=== PATIENT | male | born 1940 | race Caucasian/White ===

== ENCOUNTER 2016-11-10 21:36 | Inpatient (IN) | payer OTHER, MEDICAID ==
[~2016-11-10] VITALS: Ht 170.2 cm; Wt 97.0 kg
[~2016-11-10 21:36] MED LIST: ACT15 PO; ADV100/50 INH; ADV250/50 INH; ADVAIR DISKUS 11 DSK IH; ALPRAZOLAM0.5 MG PO; AMBIEN CR12.5 MG PO; AMIODARONE HCL200 MG PO; ASPIRIN EC81 M1; ATI0.5 PO; ATORVASTATIN CA80 M1 PO; AUG500 PO; BACO TOP; CARCD240 PO; COLACE100 MG PO; COR200 PO; DELTASONE5 MG PO; DETROL LA2 MG PO; DETROL LA4 MG PO; DIGOXIN0.125 M1 PO; DILAUDID4 MG PO; DILTIAZEM HCL240 MG PO; DOCUSATE SODIU250 MG PO; ECO81 PO; FENOFIBRATE MI134 MG PO; FENOFIBRATE134 MG PO; FLO4 PO; GABAPENTIN300 M2 PO; GOOD SENSE ASPI81 M3 PO; GRALISE600 M2; HIBICLENS118 ML TOP; IBUPROFEN400 MG PO; K-TAB8 MEQ PO; K10 PO; LAC PO; LASIX20 MG PO; LASIX40 MG PO; LEVAQUIN750 MG PO; LEVAQUIN750 MG/150 IV; LEVOTHYROXIN0.025 M2; LEVOTHYROXIN0.125 M2 PO; LEVOTHYROXINE0.1 M2 PO; LIPITOR80 MG PO; LISINOPRIL10 MG PO; LOPRESSOR50 MG; MEDDP PO; METOPROLOL SUC100 M2 PO; METOPROLOL SUCC50 M2 PO; MONTELUKAST SOD10 M1 PO; MOT600; MUCINEX1200 M1 PO; NEU300 PO; PLAVIX75 MG PO; POTASSIUM CHLOR8 MEQ PO; PROVENTIL0.09 MG/A1 INH; RANITIDINE HCL150 M1 PO; RESTORIL30 MG PO; SERTRALINE HYD100 MG PO; SINGULAIR10 MG PO; SOL40I IV; SOLU-MEDROL40 MG IV; SOMA350 MG PO; SPIRIVA18 MC1 IH; SYN1 PO; SYNTHROID0.1 MG PO; TAMSULOSIN HCL0.4 MG PO; TERBINAFINE250 MG PO; TOP50 PO; TOPROL XL50 MG PO; TRICOR145 M1 PO; VENTOLIN H0.09 MG/A1 INH; VIAGRA25 MG PO; XANAX0.5 MG PO; XARELTO10 M1 PO; XARELTO15 M1 PO; XARELTO20 M1 PO; ZANTAC 150150 MG; ZANTAC 150150 MG PO; ZANTAC150 MG PO; ZOLOFT100 MG PO; ZOLOFT25 MG
[2016-11-10 22:30] LABS: BASOPHIL % 0.4 % (0-2); PLATELET COUNT 393 x10^3mcL (130-400)
[2016-11-10 22:35] LABS: RED CELL DISTRIBUTION WIDTH 19.2 % (11.5-14.5)
[2016-11-10 22:41] LABS: CALCIUM 8.7 mg/dL (8.5-10.1); CARBON DIOXIDE 21.1 mmol/L (21-32); CHLORIDE SERUM 106 mmol/L (98-107); GLUCOSE SERUM 143 mg/dL (74-106); POTASSIUM SERUM 3.1 mmol/L (3.5-5.1); SODIUM SERUM 142 mmol/L (136-145)
[2016-11-10 22:46] LABS: ALBUMIN 3.7 g/dL (3.4-5.0); ALKALINE PHOSPHATASE 75 U/L (46-116); ALT/SGPT 19 U/L (16-63); AMYLASE 26 U/L (25-115); AST/SGOT 10 U/L (15-37); BILIRUBIN TOTAL 0.61 mg/dL (0.20-1.00); LIPASE 81 IU/L (73-393); TOTAL PROTEIN, SERUM 7.3 g/dL (6.4-8.2)
[2016-11-10 23:06] LABS: CK-MB 1.4 ng/mL (0-3.6)
[2016-11-11] VITALS (7 sets, daily range): BP systolic 116–145; BP diastolic 56–88
[2016-11-11 02:05] LABS: UA SPECIFIC GRAVITY 1.015 (1.005-1.035); microscopic required? YES; urine erythrocyte TRACE (NEGATIVE)
[2016-11-11] MEDS ORDERED: XARELTO20 M1 PO (03:21)
[2016-11-11] MEDS ORDERED: THEOPHYLLINE300 MG PO (04:15)
[2016-11-11 04:32] LABS: CHOLESTEROL/HDL RATIO 3.9; PHOSPHOROUS 2.7 mg/dL (2.5-4.9)
[2016-11-11 04:45] LABS: FREE T4 0.61 ng/dL (0.76-1.46); FREE THYROXINE INDEX 1.5 ug/dL (1.4-4.5); T4(THYROXINE) 4.5 ug/dL (4.7-13.3)
[2016-11-11 05:25] LABS: T3 TOTAL 0.85 ng/mL
[2016-11-11 12:27] LABS: CALCIUM 8.7 mg/dL (8.5-10.1); CARBON DIOXIDE 24.2 mmol/L (21-32); CHLORIDE SERUM 103 mmol/L (98-107); CREATININE SERUM 1.1 mg/dL (0.7-1.3); GLUCOSE SERUM 129 mg/dL (74-106); POTASSIUM SERUM 3.9 mmol/L (3.5-5.1); SODIUM SERUM 136 mmol/L (136-145)
[2016-11-12 06:02] VITALS: BP 113/69
[2016-11-12 09:58] VITALS: BP 148/73
[2016-11-12 14:30] VITALS: BP 106/39
[2016-11-12 17:25] VITALS: BP 118/58
[2016-11-12 21:37] VITALS: BP 123/62
[2016-11-13 05:54] VITALS: BP 115/48
[2016-11-13 06:11] LABS: BASOPHIL % 0.6 % (0-2); PLATELET COUNT 341 x10^3mcL (130-400)
[2016-11-13 06:30] LABS: CALCIUM 8.2 mg/dL (8.5-10.1); CARBON DIOXIDE 22.5 mmol/L (21-32); CHLORIDE SERUM 106 mmol/L (98-107); CREATININE SERUM 1.1 mg/dL (0.7-1.3); GLUCOSE SERUM 104 mg/dL (74-106); POTASSIUM SERUM 3.6 mmol/L (3.5-5.1); SODIUM SERUM 140 mmol/L (136-145)
[2016-11-13 06:37] LABS: RED CELL DISTRIBUTION WIDTH 19.2 % (11.5-14.5)
[2016-11-13 09:10] VITALS: BP 146/48
[2016-11-13 12:20] VITALS: BP 102/48
[2016-11-13 17:53] VITALS: BP 127/67
[2016-11-13 17:56] VITALS: BP 125/56
[2016-11-13 21:24] VITALS: BP 131/58
[2016-11-14 05:20] VITALS: BP 123/78
[2016-11-14 07:01] LABS: CALCIUM 8.2 mg/dL (8.5-10.1); CARBON DIOXIDE 23.1 mmol/L (21-32); CHLORIDE SERUM 106 mmol/L (98-107); CREATININE SERUM 1.1 mg/dL (0.7-1.3); GLUCOSE SERUM 117 mg/dL (74-106); POTASSIUM SERUM 3.5 mmol/L (3.5-5.1); SODIUM SERUM 140 mmol/L (136-145)
[2016-11-14 07:13] LABS: TOTAL IRON BINDING CAPACITY 357 ug/dL (250-450)
[2016-11-14 07:19] LABS: IRON 19 ug/dL (65-170)
[2016-11-14 07:43] LABS: PLATELET COUNT 309 x10^3mcL (130-400); RED BLOOD CELLS 3.99 M/mm3 (4.52-5.90)
[2016-11-14 07:52] LABS: rbc morphology (normal/abnorm) ABNORMAL (NORMAL)
[2016-11-14 08:00] VITALS: BP 117/53
[2016-11-14] MEDS ORDERED: AMIODARONE HCL200 MG PO (10:52)
[2016-11-14] MEDS ORDERED: FER300 PO (10:54)
[2016-11-14] MEDS ORDERED: LOP50 PO (10:56)
[2016-11-14] MEDS ORDERED: BACO TOP (10:57)
[2016-11-14] MEDS ORDERED: VITC PO (10:58)
[2016-11-14 13:09] LABS: BAND NEUTROPHIL 0 % (0-10); BASOPHIL 0 % (0-2); MONOCYTE 8 % (0-7); SEGMENTED NEUTROPHILS 75 % (37-75)
[2016-11-14 13:10] LABS: PLATELET MORPHOLOGY PLATELETS NORMAL
[2016-11-14 13:24] VITALS: BP 132/60
[2016-11-14 13:44] VITALS: BP 132/60
[2016-11-14 15:45] VITALS: Ht 170.2 cm; Wt 97.0 kg
[2016-11-14] MEDS ORDERED: XARELTO20 M1 PO (15:51)
[2016-11-15 12:39] LABS: TRANSFERRIN 296 mg/dL (200-370)
== END 2016-11-14 18:04 | disposition home or self-care (01) | DRG 391 ==
LOC: ED 21:36 → DU 11-11 02:51
PROVIDERS: Emergency Medicine; Family Medicine; ADMIT Family Medicine
DX: K52.9 Noninfective gastroenteritis and colitis, unspecified (principal); N17.0 Acute kidney failure with tubular necrosis; I47.1 Supraventricular tachycardia; E87.6 Hypokalemia; J44.9 Chronic obstructive pulmonary disease, unspecified; J30.9 Allergic rhinitis, unspecified; K21.9 Gastro-esophageal reflux disease without esophagitis; F32.9 Major depressive disorder, single episode, unspecified; D50.9 Iron deficiency anemia, unspecified; G62.9 Polyneuropathy, unspecified; G47.00 Insomnia, unspecified; I10 Essential (primary) hypertension; D72.829 Elevated white blood cell count, unspecified; I48.2 Chronic atrial fibrillation; E66.9 Obesity, unspecified; Z79.82 Long term (current) use of aspirin; Z68.33 Body mass index [BMI] 33.0-33.9, adult; Z87.891 Personal history of nicotine dependence; Z79.01 Long term (current) use of anticoagulants; Z22.322 Carrier or suspected carrier of Methicillin resistant Staphylococcus aureus
CPT/HCPCS: 82962; 83880; 84439; J2270; J2405; J3490; J7030; J7620; J7626; J8597; Q0092; Q0163; Q9966; Q9967

== ENCOUNTER 2016-11-15 12:31 | Inpatient (IN) | payer OTHER, MEDICAID ==
[~2016-11-15] VITALS: Ht 170.2 cm; Wt 110.3 kg
[~2016-11-15 12:31] MED LIST changes: +FER300 PO; +LOP50 PO; +THEOPHYLLINE300 MG PO; +VITC PO
[2016-11-15 13:29] LABS: BASOPHIL % 0.4 % (0-2); PLATELET COUNT 311 x10^3mcL (130-400)
[2016-11-15 13:37] LABS: CALCIUM 8.4 mg/dL (8.5-10.1); CARBON DIOXIDE 27.9 mmol/L (21-32); CHLORIDE SERUM 102 mmol/L (98-107); CREATININE SERUM 1.1 mg/dL (0.7-1.3); GLUCOSE SERUM 117 mg/dL (74-106); POTASSIUM SERUM 3.4 mmol/L (3.5-5.1); SODIUM SERUM 136 mmol/L (136-145)
[2016-11-15 13:41] LABS: ALBUMIN 3.4 g/dL (3.4-5.0); ALKALINE PHOSPHATASE 74 U/L (46-116); ALT/SGPT 13 U/L (16-63); AMYLASE 33 U/L (25-115); AST/SGOT 6 U/L (15-37); BILIRUBIN TOTAL 0.3 mg/dL (0.20-1.00); LIPASE 105 IU/L (73-393); TOTAL PROTEIN, SERUM 6.4 g/dL (6.4-8.2)
[2016-11-15 16:15] LABS: UA SPECIFIC GRAVITY 1.015 (1.005-1.035); microscopic required? YES; urine erythrocyte TRACE (NEGATIVE)
[2016-11-15 16:45] LABS: MAGNESIUM 2.1 mg/dL (1.8-2.4); PHOSPHOROUS 3.3 mg/dL (2.5-4.9)
[2016-11-15 16:49] LABS: CHOLESTEROL/HDL RATIO 3.4
[2016-11-15 16:54] LABS: T3 TOTAL 0.69 ng/mL
[2016-11-15 16:55] LABS: FREE T4 0.75 ng/dL (0.76-1.46); FREE THYROXINE INDEX 1.7 ug/dL (1.4-4.5); T4(THYROXINE) 4.9 ug/dL (4.7-13.3)
[2016-11-15 17:41] VITALS: BP 174/67
[2016-11-15 17:53] VITALS: BP 174/67
[2016-11-15 19:43] VITALS: BP 140/59
[2016-11-15 21:44] VITALS: BP 141/60
[2016-11-16 06:06] VITALS: BP 110/51
[2016-11-16 07:40] LABS: CALCIUM 8.3 mg/dL (8.5-10.1); CARBON DIOXIDE 25.9 mmol/L (21-32); CHLORIDE SERUM 104 mmol/L (98-107); CREATININE SERUM 1.6 mg/dL (0.7-1.3); GLUCOSE SERUM 116 mg/dL (74-106); MAGNESIUM 2.2 mg/dL (1.8-2.4); PHOSPHOROUS 4.2 mg/dL (2.5-4.9); POTASSIUM SERUM 3.9 mmol/L (3.5-5.1); SODIUM SERUM 139 mmol/L (136-145)
[2016-11-16 07:45] LABS: BASOPHIL % 0.5 % (0-2); PLATELET COUNT 286 x10^3mcL (130-400)
[2016-11-16 07:52] LABS: RED CELL DISTRIBUTION WIDTH 19.1 % (11.5-14.5)
[2016-11-16 07:53] LABS: rbc morphology (normal/abnorm) ABNORMAL (NORMAL)
[2016-11-16 09:31] VITALS: BP 99/40
[2016-11-16 13:48] VITALS: BP 117/39
[2016-11-16 17:55] VITALS: BP 118/46
[2016-11-16 21:17] VITALS: BP 123/48
[2016-11-17 05:46] VITALS: BP 123/55
[2016-11-17 06:16] LABS: BASOPHIL % 0.5 % (0-2); PLATELET COUNT 297 x10^3mcL (130-400)
[2016-11-17 06:19] LABS: CALCIUM 8.4 mg/dL (8.5-10.1); CARBON DIOXIDE 24.9 mmol/L (21-32); CHLORIDE SERUM 104 mmol/L (98-107); CREATININE SERUM 1.4 mg/dL (0.7-1.3); GLUCOSE SERUM 116 mg/dL (74-106); MAGNESIUM 2.1 mg/dL (1.8-2.4); PHOSPHOROUS 4.3 mg/dL (2.5-4.9); POTASSIUM SERUM 3.8 mmol/L (3.5-5.1); SODIUM SERUM 138 mmol/L (136-145)
[2016-11-17 07:09] LABS: RED CELL DISTRIBUTION WIDTH 19.9 % (11.5-14.5)
[2016-11-17 09:07] VITALS: BP 136/59
[2016-11-17 13:51] VITALS: BP 92/42
[2016-11-17 17:20] VITALS: BP 131/50
[2016-11-17 21:53] VITALS: BP 112/57
[2016-11-18 06:00] VITALS: BP 127/50
[2016-11-18 06:17] LABS: BASOPHIL % 0.5 % (0-2); PLATELET COUNT 290 x10^3mcL (130-400)
[2016-11-18 06:23] LABS: CALCIUM 8.6 mg/dL (8.5-10.1); CARBON DIOXIDE 29.7 mmol/L (21-32); CHLORIDE SERUM 106 mmol/L (98-107); CREATININE SERUM 1.2 mg/dL (0.7-1.3); GLUCOSE SERUM 113 mg/dL (74-106); PHOSPHOROUS 3.9 mg/dL (2.5-4.9); POTASSIUM SERUM 4.1 mmol/L (3.5-5.1); SODIUM SERUM 141 mmol/L (136-145)
[2016-11-18 07:21] LABS: RED CELL DISTRIBUTION WIDTH 19.8 % (11.5-14.5)
[2016-11-18 10:00] VITALS: BP 124/61
[2016-11-18 14:39] VITALS: BP 120/66
[2016-11-18 18:09] VITALS: BP 133/69
[2016-11-18 22:41] VITALS: BP 119/50
[2016-11-19 06:08] VITALS: BP 114/41
[2016-11-19 09:55] VITALS: BP 114/45
[2016-11-19 13:42] VITALS: BP 136/55
[2016-11-19 15:55] VITALS: BP 136/55
[2016-11-19 17:49] VITALS: BP 152/56
[2016-11-19 21:56] VITALS: BP 98/62
[2016-11-20 05:54] VITALS: BP 155/55
[2016-11-20 09:44] VITALS: BP 167/76
[2016-11-20 13:50] VITALS: BP 126/62
[2016-11-20 17:14] VITALS: BP 112/91
[2016-11-20] MEDS ORDERED: ACETAMINOPHEN-H1 TA1 PO (17:39)
[2016-11-20 17:54] VITALS: BP 112/91
== END 2016-11-20 19:46 | DRG 205 ==
LOC: ED 12:31 → DU 15:45 → MU 11-20 07:21
PROVIDERS: Emergency Medicine; ADMIT Family Medicine
DX: M94.0 Chondrocostal junction syndrome [Tietze] (principal); N17.0 Acute kidney failure with tubular necrosis; N39.0 Urinary tract infection, site not specified; F33.1 Major depressive disorder, recurrent, moderate; D68.69 Other thrombophilia; E87.6 Hypokalemia; E11.65 Type 2 diabetes mellitus with hyperglycemia; J44.9 Chronic obstructive pulmonary disease, unspecified; I48.2 Chronic atrial fibrillation; E03.9 Hypothyroidism, unspecified; K21.9 Gastro-esophageal reflux disease without esophagitis; I10 Essential (primary) hypertension; F41.8 Other specified anxiety disorders; E78.5 Hyperlipidemia, unspecified; M06.9 Rheumatoid arthritis, unspecified; Z68.38 Body mass index [BMI] 38.0-38.9, adult; Z79.01 Long term (current) use of anticoagulants
CPT/HCPCS: 83880; 84439; 94150; 97110-GP; 97116-GP; 97530-GP; G0378; G0480; J0696; J1200; J2270; J2405; J3490; J7030; J7620; J7626; Q0092

== ENCOUNTER 2016-12-07 05:12 | Observation (INO) | payer OTHER, MEDICAID ==
[~2016-12-07] VITALS: Ht 170.2 cm; Wt 98.0 kg
[~2016-12-07 05:12] MED LIST changes: +ACETAMINOPHEN-H1 TA1 PO
[2016-12-07 07:16] LABS: BASOPHIL % 0.4 % (0-2); PLATELET COUNT 299 x10^3mcL (130-400)
[2016-12-07 07:21] LABS: CALCIUM 8.9 mg/dL (8.5-10.1); CHLORIDE SERUM 105 mmol/L (98-107); CREATININE SERUM 1.4 mg/dL (0.7-1.3); GLUCOSE SERUM 116 mg/dL (74-106); POTASSIUM SERUM 4.4 mmol/L (3.5-5.1); SODIUM SERUM 142 mmol/L (136-145)
[2016-12-07 07:22] LABS: RED CELL DISTRIBUTION WIDTH 23.3 % (11.5-14.5)
[2016-12-07 07:32] LABS: ALBUMIN 3.8 g/dL (3.4-5.0); ALKALINE PHOSPHATASE 60 U/L (46-116); ALT/SGPT 11 U/L (16-63); AST/SGOT 9 U/L (15-37); BILIRUBIN TOTAL 0.4 mg/dL (0.20-1.00); C REACTIVE PROTEIN 0.2 mg/dL (<=0.9); TOTAL PROTEIN, SERUM 6.9 g/dL (6.4-8.2)
[2016-12-07 07:45] LABS: CK-MB 0.8 ng/mL (0-3.6)
[2016-12-07 08:11] LABS: FREE T4 0.95 ng/dL (0.76-1.46); FREE THYROXINE INDEX 2.1 ug/dL (1.4-4.5); T4(THYROXINE) 6.5 ug/dL (4.7-13.3)
[2016-12-07 08:37] LABS: ERYTHROCYTE SED RATE 0 mm/hr (0-20)
[2016-12-07 09:44] LABS: MAGNESIUM 2.2 mg/dL (1.8-2.4); PHOSPHOROUS 3.3 mg/dL (2.5-4.9)
[2016-12-07 11:08] VITALS: BP 179/95
[2016-12-07 13:15] LABS: T3 TOTAL 0.71 ng/mL
[2016-12-07 13:50] LABS: microscopic required? NO
[2016-12-07 14:38] LABS: urine erythrocyte NEGATIVE (NEGATIVE)
[2016-12-07 15:30] VITALS: BP 179/95
[2016-12-07 18:36] VITALS: BP 155/82
[2016-12-07 22:29] VITALS: BP 102/59
[2016-12-08 06:17] VITALS: BP 124/62
[2016-12-08 16:18] VITALS: BP 117/81
[2016-12-08 21:13] VITALS: BP 120/47
[2016-12-09 05:31] VITALS: BP 144/49
[2016-12-09 10:09] VITALS: BP 107/50
[2016-12-09 13:52] VITALS: BP 124/50
[2016-12-09 17:27] VITALS: BP 123/39
[2016-12-09 21:58] VITALS: BP 105/38
[2016-12-10 05:44] VITALS: BP 135/48
[2016-12-10 09:31] VITALS: BP 1110/45
== END 2016-12-10 10:30 | disposition home health service (06) | DRG 391 ==
LOC: ED 05:12 → MU 09:36 → DU 09:36 → MU 12-09 13:19
PROVIDERS: Specialist; ADMIT Student in an Organized Health Care Education/Training Program
DX: A08.4 Viral intestinal infection, unspecified (principal); N17.0 Acute kidney failure with tubular necrosis; I50.43 Acute on chronic combined systolic (congestive) and diastolic (congestive) heart failure; I11.0 Hypertensive heart disease with heart failure; I48.2 Chronic atrial fibrillation; F32.9 Major depressive disorder, single episode, unspecified; E78.5 Hyperlipidemia, unspecified; J44.9 Chronic obstructive pulmonary disease, unspecified; E03.9 Hypothyroidism, unspecified; E66.9 Obesity, unspecified; Z68.33 Body mass index [BMI] 33.0-33.9, adult; Z87.891 Personal history of nicotine dependence; Z79.82 Long term (current) use of aspirin; Z79.01 Long term (current) use of anticoagulants; Z79.891 Long term (current) use of opiate analgesic; Z91.14 Patient's other noncompliance with medication regimen
CPT/HCPCS: 82962; 83880; 84439; 94150; 97110-GP; 97116-GP; 97530-GP; G0378; J1885; J2270; J2405; J3010; J3490; J7030; J7620; Q0092; Q0163

== ENCOUNTER 2017-01-23 17:06 | Inpatient (IN) | payer OTHER, MEDICAID ==
[~2017-01-23] VITALS: Ht 170.2 cm; Wt 93.9 kg
--- NOTE | 2017-01-23 17:11 | NUR ---
WAS PROVIDED CONTACT FOR BROTHER "HILL" [phone]
[2017-01-23 18:13] LABS: BASOPHIL % 1.9 % (0-2); PLATELET COUNT 296 x10^3mcL (130-400)
[2017-01-23 18:29] LABS: RED CELL DISTRIBUTION WIDTH 22.2 % (11.5-14.5)
[2017-01-23 18:35] LABS: rbc morphology (normal/abnorm) ABNORMAL (NORMAL)
[2017-01-23 18:50] LABS: ALBUMIN 3.7 g/dL (3.4-5.0); ALKALINE PHOSPHATASE 50 U/L (46-116); ALT/SGPT 12 U/L (16-63); AMYLASE 46 U/L (25-115); AST/SGOT 19 U/L (15-37); BILIRUBIN TOTAL 0.52 mg/dL (0.20-1.00); CALCIUM 8.6 mg/dL (8.5-10.1); CARBON DIOXIDE 25.8 mmol/L (21-32); CHLORIDE SERUM 102 mmol/L (98-107); CREATININE SERUM 0.9 mg/dL (0.7-1.3); GLUCOSE SERUM 87 mg/dL (74-106); LIPASE 365 IU/L (73-393); SODIUM SERUM 137 mmol/L (136-145); TOTAL PROTEIN, SERUM 7.1 g/dL (6.4-8.2)
--- NOTE | 2017-01-23 18:53 | NUR ---
PT INFORMED IN [facility] BY GOYO, EMT, NEED URINE SAMPLE AT THIS TIME. ASSISTED BY GOYO.
[2017-01-23] MEDS ORDERED: ELIQUIS5 MG PO (18:54)
[2017-01-23 18:55] LABS: POTASSIUM SERUM 2.8 mmol/L (3.5-5.1)
[2017-01-23] MEDS ORDERED: FAMOTIDINE40 MG PO (18:55)
[2017-01-23] MEDS ORDERED: FOL1 PO (18:56)
[2017-01-23] MEDS ORDERED: FUROSEMIDE20 MG PO (18:57)
[2017-01-23] MEDS ORDERED: MAGNESIUM (18:58)
--- NOTE | 2017-01-23 19:45 | NUR ---
REPORT WAS GIVEN TO YOSSI. PATILIZBETHN WILL BE TRANS[PORTED TO ROOM 251B. KCL RIDER STARTED.
[2017-01-23 20:02] LABS: MAGNESIUM 1.9 mg/dL (1.8-2.4); PHOSPHOROUS 1.6 mg/dL (2.5-4.9)
--- NOTE | 2017-01-23 20:04 | NUR ---
REC'D PT FROM ER VIA [facility]. PT IS AAOX4. TELE #8 SB HR=55 WITH OCC. PVC'S. LUNG SOUNDS CLEAR. NO SOB NOTED. ABD SOFT. BS ACTIVE X4. DENIES ABD PAIN OR N/V. PT REPORTS HAVING DIARRHEA. PT C/O 01/01 PELVIC PAIN. IV NOTED TO RFA. K-RIDER INFUSING. ORIENTED PT TO CALL LIGHT. BED IN LOWEST POSITION. WILL ENDORSE TO PRIMARY RN.
[2017-01-23 20:05] LABS: CHOLESTEROL/HDL RATIO 4.7
[2017-01-23 20:11] LABS: T3 TOTAL 0.47 ng/mL
[2017-01-23 20:19] LABS: FREE T4 0.5 ng/dL (0.76-1.46)
[2017-01-23 20:23] VITALS: BP 131/70
--- NOTE | 2017-01-23 20:30 | NUR ---
RECEIVED REPORT FROM MAXWELL GARCIA. PT RESTING IN BED COMPLAING OF LOWER ABD PAIN. WILL MEDICATE PER PRN ORDERS. ALERT AND ORIENTED. NEG ON DROOP/PARALYSIS. THOUGHT PROCESS COHERENT. OBEYS COMMANDS. SPEECH CLEAR AND COHERENT. SAFETY MEASURES ENSURED. INSTRUCTED PT TO CALL FOR ANY NEEDS/ASSISTANCE, CALL LIGHT WITHIN REACH. WILL CONT TO MONITOR PT.
[2017-01-23 20:33] LABS: microscopic required? YES
[2017-01-23 20:35] LABS: UA SPECIFIC GRAVITY 1.015 (1.005-1.035)
[2017-01-23 20:36] LABS: urine erythrocyte TRACE (NEGATIVE)
[2017-01-23 20:39] LABS: FREE THYROXINE INDEX 1.1 ug/dL (1.4-4.5); T4(THYROXINE) 3.5 ug/dL (4.7-13.3)
[2017-01-23 23:10] VITALS: BP 131/70
--- NOTE | 2017-01-24 00:30 | NUR ---
PT EASILY AROUSABLE. PRESENTING WITH GEN WEAKNESS BUT NEG ON DROOP/PARALYSIS. OBEYS COMMANDS. THOUGHT PROCESS COHERENT. GRIN SYMMETRICAL. PERRLA WNL. SAFETY MEASURES ENSURED. CALL LIGHT WITHIN REACH. WILL CONT TO MONITOR PT.
--- NOTE | 2017-01-24 02:10 | NUR ---
NOTIFIED BY [employer] THAT PT'S HR WENT DOWN TO 38. ASSESSED PT, PT AWAKE AND ALERT SITTING ON CHAIR. DENIES ANY CHEST DISCOMFORT. MADE DR. STORY AWARE
--- NOTE | 2017-01-24 04:30 | NUR ---
PT SLEEPING COMFORTABLY BUT EASILY AROUSABLE. NEG ON DROOP/PARALYSIS. OBEYS COMMANDS. ABLE TO AMBULATE WITH ASSISTANCE. AAOX4. THOUGHT PROCESS COHERENT. SAFETY MEASURES ENSURED. CALL LIGHT WITHIN REACH.
--- NOTE | 2017-01-24 05:06 | NUR ---
PT SLEPT ON AND OFF DUE TO MUSCULAR PAIN. PAIN MANAGEMENT ENFORCED. KPAD APPLIED ON THE BACK. FALL RISK ENFORCED. SAFETY MEASURES ENSURED. PT REMAINED ALERT, ORIENTED AND EASILY AROUSABLE THROUGH OUT SHIFT. DENIED OF ANY CHEST DISCOMFORT. SAFETY MEASURES WERE ENSURED. CALL LIGHT WITHIN REACH.
[2017-01-24 05:31] VITALS: BP 170/71
--- NOTE | 2017-01-24 09:00 | NUR ---
PT ON BED, AWAKE, ALERT, AND ORIENTED. HAS NO COMPLAINT OF PAIN, SOB, OR DIZZINESS. RESPONDS WELL TO QUESTION AND ANSWER. CLEAR BLI LUNG FIELD, SYMMETRICAL CHEST EXPANSION AND UNLABORED. ACTIVE BOWEL SOUNDS NOTED. NON DISTENDED ABDOMEN. SKIN INTACT. AMB WITH ASSIST. SIDE RAILS UP, CALL LIGHT WTIHIN REACH, WILL CONTINUE TO MONITOR
--- NOTE | 2017-01-24 10:00 | NUR ---
PRN PAIN MED GIVEN COVERAGE
[2017-01-24 10:05] VITALS: BP 167/63
[2017-01-24 13:08] VITALS: BP 130/54
--- NOTE | 2017-01-24 14:30 | NUR ---
NEW IV SITE ESTABLISH ON THE L HAND 24G.
--- NOTE | 2017-01-24 15:53 | NUR ---
PT ON BED ASLEEP. WILL CONTINUE TO MONITOR
[2017-01-24 17:02] LABS: CALCIUM 8.2 mg/dL (8.5-10.1); CARBON DIOXIDE 22.3 mmol/L (21-32); CHLORIDE SERUM 104 mmol/L (98-107); CREATININE SERUM 0.9 mg/dL (0.7-1.3); GLUCOSE SERUM 106 mg/dL (74-106); POTASSIUM SERUM 3.8 mmol/L (3.5-5.1); SODIUM SERUM 136 mmol/L (136-145)
[2017-01-24 17:12] VITALS: Ht 170.2 cm; Wt 93.9 kg
[2017-01-24 17:16] LABS: BASOPHIL % 0.5 % (0-2); PLATELET COUNT 238 x10^3mcL (130-400)
[2017-01-24 17:19] LABS: RED CELL DISTRIBUTION WIDTH 22.2 % (11.5-14.5)
[2017-01-24 17:38] VITALS: BP 139/47
--- NOTE | 2017-01-24 19:44 | NUR ---
PT IS A/O X4, VERBAL RESPONSIVE, ABLE TO TELL WHAT HE NEEDS. LUNG SOUND CLEAR BILATEARL, NO COUGH, NO SOB, PT IS ON TELE 8, NSR, DENY ANY CHEST PAIN OR DISCOMFORT, BOWEL SOUND PRESENT ALL 4 QUADRANTS, NO DISTENTION, NO TENDER. PEDAL PULSE PRESENT BOTH FEET, TRACE EDEMA NOTED CAITLIN, IV AT LEFT HAND, NO LEAKING, NO INFILTRATION. 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
[2017-01-24 21:10] VITALS: BP 154/65
--- NOTE | 2017-01-24 21:10 | NUR ---
PT REQUEST FOR SLEEPING PILL, REPORT TO DR. PORSHA DR. MADE AWARE, WAITING FOR NEW ORDER. WILL CONTINUE TO MONITOR THE PT.
--- NOTE | 2017-01-25 05:07 | NUR ---
PT IS A/O X4, VERBAL RESPONSIVE, DENY ANY RESPIRATORY DISTRESS, C/O PAIN AT BACK, NORCO WAS GIVEN, IV AT LEFT HAND, NO LEAKING, NO INFILTRATION. ALL ADLS ASSIST, ALL NEED MET, CALL LIGHT IN REACH, WILL CONTINUE TO MONITOR.
[2017-01-25 05:38] VITALS: BP 145/48
[2017-01-25 09:34] VITALS: BP 132/47
[2017-01-25 13:45] VITALS: BP 132/39
--- NOTE | 2017-01-25 14:30 | NUR ---
PRN MEDICATION WAS GIVEN TO THE PATIENT COVERAGE. RN WAS MADE AWARE BY THE PATIENT LATER ON THAT HE SPIT OUT THE MEDICATION. RN OBSERVED A PILL ON THE FLOOR AND WASTED IT ON THE CONTAINER
--- NOTE | 2017-01-25 15:50 | NUR ---
PT'S FAMILY AT BEDSIDE. WILL CONTINUE TO MONITOR
[2017-01-25 17:10] VITALS: BP 133/56
--- NOTE | 2017-01-25 17:10 | NUR ---
PRN PAIN MED GIVEN COVERAGE. DR. MACKENZIE
--- NOTE | 2017-01-25 17:45 | NUR ---
PT ON BED, AWAKE, ALERT, AND ORIENTED. HAS NO COMPLAINT OF PAIN, SOB, OR DIZZINESS. RESPONDS WELL TO QUESTION AND ANSWER. SIDE RAILS UP, CALL LIGHT WITHIN REACH, WILL CONTINUE TO MONITOR.
--- NOTE | 2017-01-25 19:53 | NUR ---
PT IS A/O X4, VERBAL RESPONSIVE, ABLE TO TELL WHAT HE NEEDS. LUNG SOUND CLEAR BILATERAL, NO COUGH, NO SOB, PT IS ON TELE 8, SB, DENY ANY CHEST PAIN OR DISCOMFORT, BOWEL SOUND PRESENT ALL 4 QUADRANTS, NO DISTENTION, NO TENDER. PEDAL PULSE PRESENT BOTH FEET, TRACE EDEME BLE, IV AT LEFT HAND, NO LEAKING, NO INFILTRATION. ALL ADLS ASSIST, ALL NEED MET, CALL LIGHT IN REACH, WILL CONTINUE TO MONITOR.
--- NOTE | 2017-01-25 21:30 | NUR ---
PT HAD EPISODE OF FREQUENT PVC, BUT PT IS ASYMPTONMATIC, V/S STABLE, DENY ANY CHEST PAIN OR DISCOMFORT, REPORT TO DR. WORLEY, MADE AWARE, NNO, WILL CONTINUE TO MONITOR THE PT.
[2017-01-25 21:32] VITALS: BP 140/51
--- NOTE | 2017-01-26 04:58 | NUR ---
PT IS AWAKE, VERBAL RESPONSIVE, DENY ANY RESPIRATORY DISTRESS, DENY ANY PAIN OR DISCOMFORT, IV AT LEFT HAND, NO LEAKING, NO INFILTRAITON. ALL ADLS ASSIST, ALL NEED MET, CALL LIGHT IN REACH, WILL CONTINUE TO MONITOR.
[2017-01-26 05:15] VITALS: BP 150/45
[2017-01-26 06:38] LABS: BASOPHIL % 0.4 % (0-2); PLATELET COUNT 230 x10^3mcL (130-400)
[2017-01-26 06:55] LABS: RED CELL DISTRIBUTION WIDTH 21.6 % (11.5-14.5)
--- NOTE | 2017-01-26 07:30 | NUR ---
PATIENT IS SITTING UP IN BED, IN CONTACT ISOLATION FOR MRSA NARES. ALERT AND ORIENTED, CAN BE A LITTLE DEMANDING AT TIMES. IVF INFUSING WELL TO LEFT HAND, SITE PATENT. LUNGS CLEAR ON ROOM AIR. NO SOB OR COUGH NOTED. TRACE EDEMA NOTED BLE. SCD'S IN PLACE. R.T. PROTOCOL IN PLACE. K-PAD TO BACK ORDERED. TELE 8 NSR. NO ACUTE DISTRESS NOTED AT THIS TIME.
--- NOTE | 2017-01-26 08:30 | NUR ---
DR FRANCO AND MEDICAL TEAM INTO SEE PATIENT AND DISCUSS PLAN OF CARE.
[2017-01-26 09:14] VITALS: BP 187/75
[2017-01-26 12:07] VITALS: BP 135/53
--- NOTE | 2017-01-26 12:31 | NUR ---
PATIENT C/O BACK PAIN 8/10 ON THE PAIN SCALE. MEDICATED WITH NORCO PO ORDERED. PATIENT IS SITTING UP IN CHAIR AT BEDSIDE. WILL CONTINUE TO [facility].
--- NOTE | 2017-01-26 16:03 | NUR ---
PATIENT IS SITTIING UP IN CHAIR AT BEDSIDE. PATIENT C/O 8/10 BACK PAIN. MEDICATED WITH NORCO PO ORDERED. WILL CONTINUE TO MONITOR.
[2017-01-26 17:00] VITALS: BP 121/68
[2017-01-26 17:30] VITALS: BP 121/68
--- NOTE | 2017-01-26 17:34 | NUR ---
PATIENT SITTING UP IN CHAIR EATING DINNER TRAY. NO CHANGE IN CONDITION NOTED. HL PATENT. BACK PAIN HAS DECREASED TO 2/10 ON THE PAIN SCALE AFTER NORCO WAS GIVEN. PATIENT C/O HAVING DRY EYES DR KING PAGEElie PATIENT WOULD LIKE AN ORDER FOR ARTIFICIAL TEARS. PATIENT REMAINS IN ISOLATION FOR MRSA NARES. TREATMENT IN PROGRESS. NO ACUTE DISTRESS NOTED. WILL CONTINUE TO MONITOR.
--- NOTE | 2017-01-26 19:50 | NUR ---
AWAKE AND ALERT, ORIENTED X 4. SITTING ON CHAIR, WATCHING TV. BREATHING EVEN AND UNLABORED ON ROOM AIR. STATED HAVING BACK PAIN. SALINE LOCK TO LEFT HAND. NOTED KPAD ON BED. MED SURG PT.
--- NOTE | 2017-01-26 20:01 | NUR ---
STATED EYES ARE DRY, INFORMED DR. VALERA, NEW ORDER RECEIVED.
[2017-01-26 21:09] VITALS: BP 143/59
--- NOTE | 2017-01-26 23:00 | NUR ---
EYES CLOSED, BREATHING EVEN AND UNLABORED. CALL LIGHT WITHIN EASY REACH
--- NOTE | 2017-01-27 01:10 | NUR ---
anila, stated needed assistance to use urinal. voided 300ml yellow urine. provided with extra blanket.
[2017-01-27 05:43] VITALS: BP 135/61
--- NOTE | 2017-01-27 06:26 | NUR ---
EYES CLOSED, BREATHING EVEN AND UNLABORED. KEPT ON CONTACT ISOLATION. CALL LIGHT WITHIN EASY REACH.
--- NOTE | 2017-01-27 07:36 | NUR ---
PT RECEIVED DURING CHANGE OF SHIFT, AWAKE/ALERT, LANGUAGE BARRIER PRESENT, NO TELE, DENIES CHEST PAIN, PULSES PRESENT, TRACE EDEMA BLE, LUNGS CTA ON RA, DENIES SOB, BREATHING EVEN AND UNLABORED, BOWEL SOUNDS ACTIVE, ABLE TO VOID USING URINAL, K-PAD TO BACK, SKIN WARM DRY INTACT, C/O LOWER BACK PAIN 12/01, IV TO LEFT HAND INFUSING NS AT 50ML/HR, IV WNL, CALL LIGHT WITHIN REACH, CALM AND COOPERATIVE, WILL CONTINUE TO MONITOR.
--- NOTE | 2017-01-27 08:05 | NUR ---
DR. FRANCO AND RESIDENTS MAKING ROUNDS, PLAN OF CARE DISCUSSED, PT EXPLAINED NEED FOR PLACEMENT IN DIFFERENT FACILITY THAN THE PREVIOUS ONE.
[2017-01-27 09:09] VITALS: BP 126/60
--- NOTE | 2017-01-27 09:21 | NUR ---
PT DENIES SOB, STATES MEDICATION INEFFECTIVE, SITTING UP IN CHAIR FOR BACK PAIN, CALL LIGHT WITHIN REACH, WILL CONTINUE TO MONITOR.
--- NOTE | 2017-01-27 10:15 | NUR ---
PT DENIES SOB, STATES PAIN IS CURRENTLY TOLERABLE, CALL LIGHT WITHIN REACH, WILL CONTINUE TO MONITOR.
--- NOTE | 2017-01-27 11:12 | NUR ---
PT DENIES SOB, STATES PAIN CURRENTLY TOLERABLE, CALL LIGHT WITHIN REACH, WILL CONTINUE TO MONITOR.
--- NOTE | 2017-01-27 12:05 | NUR ---
PT DENIES SOB, STATES BACK PAIN IS TOLERABLE, CURRENTLY REFUSING PAIN MEDS, CALL LIGHT WITHIN REACH, WILL CONTINUE TO MONITOR.
--- NOTE | 2017-01-27 13:09 | NUR ---
PT DENIES SOB, C/O BACK PAIN 12/01, MEDICATED PER EMAR, CALL LIGHT WITHIN REACH, WILL CONTINUE TO MONITOR.
--- NOTE | 2017-01-27 14:09 | NUR ---
PT ASLEEP, NO INDICATION OF PAIN, BREATHING EVEN AND UNLABORED, CALL LIGHT WITHIN REACH, WILL CONTINUE TO MONITOR.
--- NOTE | 2017-01-27 15:13 | NUR ---
PT ASLEEP BUT AROUSABLE, NO INDICATION OF PAIN, BREATHING EVEN AND UNLABORED, CALL LIGHT WITHIN REACH, WILL CONTINUE TO MONITOR.
[2017-01-27] MEDS ORDERED: IPRATROPIUM BROM3 M2 HHN ×2 (16:06)
[2017-01-27] MEDS ORDERED: CYCLOBENZAPRINE5 MG PO (16:07)
[2017-01-27] MEDS ORDERED: MOR2I IV (16:09)
[2017-01-27] MEDS ORDERED: TYL325 PO (16:09)
[2017-01-27] MEDS ORDERED: ARTOS OU (16:10)
[2017-01-27] MEDS ORDERED: COL100 PO (16:10)
[2017-01-27] MEDS ORDERED: MECLIZINE HCL12.5 MG PO (16:11)
[2017-01-27] MEDS ORDERED: ZOFI IV (16:11)
[2017-01-27] MEDS ORDERED: HIBICLENS118 ML TOP (16:13)
--- NOTE | 2017-01-27 16:16 | NUR ---
PT DENIES SOB, STATES BACK PAIN IS TOLERABLE, REFUSED CARLOS, STATED "MY HEART DOCTOR TOLD ME NOT TO TAKE THAT ONE.", CALL LIGHT WITHIN REACH, WILL CONTINUE TO MONITOR.
[2017-01-27 16:48] VITALS: BP 126/60
[2017-01-27 16:56] VITALS: BP 144/61
--- NOTE | 2017-01-27 17:36 | NUR ---
DISCHARGE INSTRUCTIONS GIVEN, PT VERBALIZED UNDERSTANDING, ALL QUESTIONS ANSWERED, INFORMED TRANSPORTATION WOULD ARRIVE BETWEEN 8-9PM TONIGHT, CALL LIGHT WITHIN REACH, WILL CONTINUE TO MONITOR.
--- NOTE | 2017-01-27 18:06 | NUR ---
CADEN EVANS CALLED, REPORT GIVEN CONCERNING PT.
--- NOTE | 2017-01-27 18:19 | NUR ---
PT DENIES SOB, STATES BACK PAIN IS TOLERABLE, RECEIVED FRUIT AND SOUP REQUESTED, ASSISTED TO STREET CLOTHES IN PREPARATION TO TRANSFER BY INCOME AUDITOR, IV SALINE LOCKED, CALL LIGHT WITHIN REACH, WILL ENDORSE PT TO NEXT SHIFT.
--- NOTE | 2017-01-27 19:11 | NUR ---
AWAKE AND ALERT, ORIENTED X 4. SITTING ON CHAIR, READY FOR DISCHARGE TO [facility], AWAITING TRANSPORT. REMOVED SALINE LOCK TO LEFT HAND. WAS JUST MEDICATED WITH NORCO TABLET BY DAY SHIFT NURSE FOR COMPLAINT OF PAIN TO BACK. BREATHING EVEN AND UNLABORED ON ROOM AIR. ON CONTACT ISOLATION.
[2017-01-27 19:21] VITALS: BP 140/55
--- NOTE | 2017-01-27 19:59 | NUR ---
[facility] BR[facility] TO [facility]. REPORT GIVEN. PT AWAKE AND ALERT, IN NO ACUTE DISTRESS, BREATHING EVEN AND UNLABORED ON ROOM AIR. VITAL SIGNS STABLE.
--- NOTE | 2017-01-27 20:02 | NUR ---
DISCHARGED, BELONGINGS WITH PT
== END 2017-01-27 20:03 | disposition short-term general hospital (02) | DRG 640 ==
LOC: ED 17:06 → DU 19:25 → MU 01-24 19:06 → DU 01-24 19:06 → MU 01-26 12:43
PROVIDERS: Emergency Medicine; ADMIT Family Medicine
DX: E87.6 Hypokalemia (principal); N17.0 Acute kidney failure with tubular necrosis; I50.43 Acute on chronic combined systolic (congestive) and diastolic (congestive) heart failure; I42.0 Dilated cardiomyopathy; I11.0 Hypertensive heart disease with heart failure; K58.0 Irritable bowel syndrome with diarrhea; E03.9 Hypothyroidism, unspecified; J44.9 Chronic obstructive pulmonary disease, unspecified; D63.8 Anemia in other chronic diseases classified elsewhere; G89.29 Other chronic pain; M54.5 Low back pain; I36.1 Nonrheumatic tricuspid (valve) insufficiency; I27.2 Other secondary pulmonary hypertension; R10.2 Pelvic and perineal pain; R31.9 Hematuria, unspecified; I34.0 Nonrheumatic mitral (valve) insufficiency; K57.30 Diverticulosis of large intestine without perforation or abscess without bleeding; E83.39 Other disorders of phosphorus metabolism; I48.2 Chronic atrial fibrillation; F32.9 Major depressive disorder, single episode, unspecified; E78.5 Hyperlipidemia, unspecified; Z68.32 Body mass index [BMI] 32.0-32.9, adult; Z87.891 Personal history of nicotine dependence; Z86.14 Personal history of Methicillin resistant Staphylococcus aureus infection
CPT/HCPCS: 83880; 84439; 97110-GP; G0378; J1885; J2270; J3480; J3490; J7030; J7620; Q0092

== ENCOUNTER 2017-02-13 13:28 | Inpatient (IN) | payer OTHER, MEDICAID ==
[~2017-02-13] VITALS: Ht 170.2 cm; Wt 104.3 kg
[~2017-02-13 13:28] MED LIST changes: +ARTOS OU; +COL100 PO; +CYCLOBENZAPRINE5 MG PO; +ELIQUIS5 MG PO; +FAMOTIDINE40 MG PO; +FOL1 PO; +FUROSEMIDE20 MG PO; +IPRATROPIUM BROM3 M2 HHN; +MAGNESIUM; +MECLIZINE HCL12.5 MG PO; +MOR2I IV; +TYL325 PO; +ZOFI IV
[2017-02-13 14:27] LABS: BASOPHIL % 0.1 % (0-2); PLATELET COUNT 336 x10^3mcL (130-400)
[2017-02-13 14:28] LABS: RED CELL DISTRIBUTION WIDTH 22.4 % (11.5-14.5)
[2017-02-13 14:50] LABS: ALKALINE PHOSPHATASE 52 U/L (46-116); ALT/SGPT 11 U/L (16-63); AST/SGOT 23 U/L (15-37); BILIRUBIN TOTAL 0.4 mg/dL (0.20-1.00); CALCIUM 8.1 mg/dL (8.5-10.1); CARBON DIOXIDE 21.1 mmol/L (21-32); CHLORIDE SERUM 100 mmol/L (98-107); GLUCOSE SERUM 117 mg/dL (74-106); POTASSIUM SERUM 4.6 mmol/L (3.5-5.1); SODIUM SERUM 136 mmol/L (136-145); TOTAL PROTEIN, SERUM 7.3 g/dL (6.4-8.2)
[2017-02-13 14:52] LABS: ALBUMIN 3.1 g/dL (3.4-5.0)
[2017-02-13 14:53] LABS: CREATININE SERUM 4.6 mg/dL (0.7-1.3)
[2017-02-13 16:19] VITALS: BP 125/52
[2017-02-13 16:42] LABS: MAGNESIUM 2.3 mg/dL (1.8-2.4); PHOSPHOROUS 4.7 mg/dL (2.5-4.9)
[2017-02-13 16:52] LABS: T3 TOTAL 0.31 ng/mL
[2017-02-13 16:54] LABS: FREE T4 0.75 ng/dL (0.76-1.46); FREE THYROXINE INDEX 1.6 ug/dL (1.4-4.5); T4(THYROXINE) 4.8 ug/dL (4.7-13.3)
[2017-02-13 17:20] VITALS: BP 147/49
[2017-02-13 17:28] VITALS: Ht 170.2 cm; Wt 104.3 kg
[2017-02-13 17:30] VITALS: BP 142/45
[2017-02-13 19:45] VITALS: BP 130/48
[2017-02-13 21:41] LABS: microscopic required? YES; urine erythrocyte 1+ (NEGATIVE)
[2017-02-14 06:12] VITALS: BP 137/53
[2017-02-14 06:35] LABS: BASOPHIL % 0.3 % (0-2); PLATELET COUNT 290 x10^3mcL (130-400)
[2017-02-14 06:39] LABS: RED CELL DISTRIBUTION WIDTH 22.2 % (11.5-14.5)
[2017-02-14 06:51] LABS: CALCIUM 8.2 mg/dL (8.5-10.1); CARBON DIOXIDE 20.7 mmol/L (21-32); CHLORIDE SERUM 105 mmol/L (98-107); CREATININE SERUM 3.3 mg/dL (0.7-1.3); GLUCOSE SERUM 113 mg/dL (74-106); MAGNESIUM 2.4 mg/dL (1.8-2.4); PHOSPHOROUS 4.6 mg/dL (2.5-4.9); POTASSIUM SERUM 4.4 mmol/L (3.5-5.1); SODIUM SERUM 139 mmol/L (136-145)
[2017-02-14 07:09] LABS: TOTAL IRON BINDING CAPACITY 283 ug/dL (250-450)
[2017-02-14 07:11] LABS: IRON 28 ug/dL (65-170)
[2017-02-14 08:57] VITALS: BP 125/53
[2017-02-14 14:07] VITALS: BP 121/41
[2017-02-14 17:20] VITALS: BP 118/43
[2017-02-14 19:40] VITALS: BP 135/49
[2017-02-15 05:35] VITALS: BP 143/47
[2017-02-15 06:11] LABS: BASOPHIL % 0.4 % (0-2); PLATELET COUNT 364 x10^3mcL (130-400)
[2017-02-15 06:30] LABS: RED CELL DISTRIBUTION WIDTH 21.9 % (11.5-14.5)
[2017-02-15 07:09] LABS: CALCIUM 8.3 mg/dL (8.5-10.1); CARBON DIOXIDE 23.2 mmol/L (21-32); CHLORIDE SERUM 107 mmol/L (98-107); CREATININE SERUM 2.4 mg/dL (0.7-1.3); GLUCOSE SERUM 113 mg/dL (74-106); POTASSIUM SERUM 5.1 mmol/L (3.5-5.1); SODIUM SERUM 141 mmol/L (136-145)
[2017-02-15 08:55] VITALS: BP 140/52
[2017-02-15 13:00] VITALS: BP 121/52
[2017-02-15 17:16] VITALS: BP 156/52
[2017-02-16 05:56] VITALS: BP 156/54
[2017-02-16 10:28] VITALS: BP 159/69
[2017-02-16 13:21] LABS: BASOPHIL % 0.3 % (0-2); PLATELET COUNT 400 x10^3mcL (130-400)
[2017-02-16 13:22] LABS: CALCIUM 8.7 mg/dL (8.5-10.1); CARBON DIOXIDE 24.5 mmol/L (21-32); CHLORIDE SERUM 104 mmol/L (98-107); CREATININE SERUM 1.7 mg/dL (0.7-1.3); GLUCOSE SERUM 108 mg/dL (74-106); POTASSIUM SERUM 4.4 mmol/L (3.5-5.1); SODIUM SERUM 138 mmol/L (136-145)
[2017-02-16 13:23] LABS: RED CELL DISTRIBUTION WIDTH 21.7 % (11.5-14.5); rbc morphology (normal/abnorm) ABNORMAL (NORMAL)
[2017-02-16] MEDS ORDERED: LEV500PM IV ×2 (14:38→16:20)
[2017-02-16] MEDS ORDERED: CLEOCIN HCL150 MG PO (14:39)
[2017-02-16] MEDS ORDERED: LAC PO (14:39)
[2017-02-16 14:49] VITALS: BP 163/69
[2017-02-16 14:51] VITALS: BP 121/74
[2017-02-16 16:32] VITALS: BP 121/74
== END 2017-02-16 16:52 | DRG 871 ==
LOC: ED 13:28 → DU 15:47 → ED 16:33 → DU 17:18
PROVIDERS: Emergency Medicine; Student in an Organized Health Care Education/Training Program; ADMIT Family Medicine
PROC: 0HQ0XZZ Repair Scalp Skin, External Approach (ICD-10-PCS; principal; 2017-02-13)
PROC: 5A09457 Assistance with Respiratory Ventilation, 24-96 Consecutive Hours, Continuous Positive Airway Pressure (ICD-10-PCS; 2017-02-14)
DX: A41.9 Sepsis, unspecified organism (principal); J69.0 Pneumonitis due to inhalation of food and vomit; J96.01 Acute respiratory failure with hypoxia; N17.0 Acute kidney failure with tubular necrosis; I50.43 Acute on chronic combined systolic (congestive) and diastolic (congestive) heart failure; J44.1 Chronic obstructive pulmonary disease with (acute) exacerbation; E44.1 Mild protein-calorie malnutrition; R65.20 Severe sepsis without septic shock; R73.03 Prediabetes; E83.51 Hypocalcemia; D50.9 Iron deficiency anemia, unspecified; E03.9 Hypothyroidism, unspecified; S01.01XA Laceration without foreign body of scalp, initial encounter; R51 Headache; R42 Dizziness and giddiness; R33.8 Other retention of urine; R31.9 Hematuria, unspecified; E66.9 Obesity, unspecified; Z68.36 Body mass index [BMI] 36.0-36.9, adult; Z96.642 Presence of left artificial hip joint; Z87.891 Personal history of nicotine dependence; Z22.322 Carrier or suspected carrier of Methicillin resistant Staphylococcus aureus; W18.39XA Other fall on same level, initial encounter; Y92.009 Unspecified place in unspecified non-institutional (private) residence as the place of occurrence of the external cause
CPT/HCPCS: 36600; 76770; 82962; 83880; 84439; 97116-GP; 97530-GP; J0132; J1956; J2270; J3490; J7030; J7512; J7613; J7620; J7644; Q0092; Q0163

== ENCOUNTER 2017-05-06 09:22 | Inpatient (IN) | payer OTHER ==
[~2017-05-06] VITALS: Ht 170.2 cm; Wt 77.1 kg
[~2017-05-06 09:22] MED LIST changes: +CLEOCIN HCL150 MG PO; +LEV500PM IV
[2017-05-06 11:07] LABS: BASOPHIL % 0.1 % (0-2); PLATELET COUNT 228 x10^3mcL (130-400)
[2017-05-06 11:15] LABS: RED CELL DISTRIBUTION WIDTH 15.6 % (11.5-14.5)
[2017-05-06 11:17] LABS: CALCIUM 7.6 mg/dL (8.5-10.1); CARBON DIOXIDE 19.3 mmol/L (21-32); CHLORIDE SERUM 109 mmol/L (98-107); CREATININE SERUM 2.1 mg/dL (0.7-1.3); GLUCOSE SERUM 114 mg/dL (74-106); POTASSIUM SERUM 3.3 mmol/L (3.5-5.1); SODIUM SERUM 140 mmol/L (136-145)
[2017-05-06 11:22] LABS: ALBUMIN 3.5 g/dL (3.4-5.0); ALKALINE PHOSPHATASE 74 U/L (46-116); ALT/SGPT 17 U/L (16-63); AST/SGOT 14 U/L (15-37); CHOLESTEROL 122 mg/dL (<200); HDL CHOLESTEROL 35 mg/dL (40-60); TOTAL PROTEIN, SERUM 6.8 g/dL (6.4-8.2)
[2017-05-06 11:33] LABS: MAGNESIUM 2.1 mg/dL (1.8-2.4); T4(THYROXINE) 5.6 ug/dL (4.7-13.3)
[2017-05-06 11:37] LABS: UA SPECIFIC GRAVITY 1.025 (1.005-1.035); microscopic required? YES; urine erythrocyte NEGATIVE (NEGATIVE)
[2017-05-06 13:23] LABS: PHOSPHOROUS 5.2 mg/dL (2.5-4.9)
[2017-05-06 13:34] LABS: T3 TOTAL 0.57 ng/mL
[2017-05-06 13:35] LABS: FREE T4 0.77 ng/dL (0.76-1.46); FREE THYROXINE INDEX 2.3 ug/dL (1.4-4.5); T4(THYROXINE) 6.1 ug/dL (4.7-13.3)
[2017-05-06 15:00] VITALS: BP 176/93
[2017-05-06 15:26] VITALS: BP 176/93
[2017-05-06 16:12] LABS: TOTAL IRON BINDING CAPACITY 363 ug/dL (250-450)
[2017-05-06 16:13] LABS: IRON 33 ug/dL (65-170)
[2017-05-06 16:25] LABS: RED BLOOD CELLS 3.69 M/mm3 (4.52-5.90)
[2017-05-06 17:58] VITALS: BP 176/93
[2017-05-06 18:10] VITALS: BP 162/78
[2017-05-06 21:04] VITALS: BP 154/56
[2017-05-06 23:11] LABS: AMPHETAMINE QUAL UR NONE DETECTED (NEG <=1000)
[2017-05-07 00:36] VITALS: BP 159/72
[2017-05-07 09:51] VITALS: BP 185/68
[2017-05-07 13:01] VITALS: BP 167/64
[2017-05-07 16:55] LABS: BASOPHIL % 0.4 % (0-2); PLATELET COUNT 236 x10^3mcL (130-400)
[2017-05-07 17:12] LABS: CALCIUM 8.2 mg/dL (8.5-10.1); CHLORIDE SERUM 112 mmol/L (98-107); CREATININE SERUM 0.9 mg/dL (0.7-1.3); GLUCOSE SERUM 119 mg/dL (74-106); MAGNESIUM 2.1 mg/dL (1.8-2.4); PHOSPHOROUS 2.7 mg/dL (2.5-4.9); POTASSIUM SERUM 3.4 mmol/L (3.5-5.1); SODIUM SERUM 144 mmol/L (136-145)
[2017-05-07 17:27] VITALS: BP 113/65
[2017-05-07 20:57] VITALS: BP 157/49
[2017-05-08] VITALS (7 sets, daily range): BP systolic 102–160; BP diastolic 50–83
[2017-05-08 10:32] LABS: BASOPHIL % 0.5 % (0-2); PLATELET COUNT 187 x10^3mcL (130-400)
[2017-05-08 10:35] LABS: CALCIUM 8.6 mg/dL (8.5-10.1); CARBON DIOXIDE 23.4 mmol/L (21-32); CHLORIDE SERUM 108 mmol/L (98-107); CREATININE SERUM 0.8 mg/dL (0.7-1.3); GLUCOSE SERUM 104 mg/dL (74-106); PHOSPHOROUS 3.1 mg/dL (2.5-4.9); POTASSIUM SERUM 3.8 mmol/L (3.5-5.1); SODIUM SERUM 140 mmol/L (136-145)
[2017-05-08 10:37] LABS: RED CELL DISTRIBUTION WIDTH 14.9 % (11.5-14.5)
[2017-05-08] MEDS ORDERED: BD LACTINEX1.4 MG PO (17:34)
[2017-05-08] MEDS ORDERED: ROC1I IM (17:51)
[2017-05-09 05:36] VITALS: BP 132/59
[2017-05-09 09:21] VITALS: BP 148/54
[2017-05-09 09:51] VITALS: BP 148/54
[2017-05-09 14:00] VITALS: BP 109/55
[2017-05-09 15:10] VITALS: BP 124/46
[2017-05-09 16:06] VITALS: BP 124/46
== END 2017-05-09 18:23 | DRG 177 ==
LOC: ED 09:22 → DU 12:48
PROVIDERS: Emergency Medicine; ADMIT Family Medicine
DX: J69.0 Pneumonitis due to inhalation of food and vomit (principal); N17.0 Acute kidney failure with tubular necrosis; N39.0 Urinary tract infection, site not specified; E86.0 Dehydration; J44.9 Chronic obstructive pulmonary disease, unspecified; E87.6 Hypokalemia; E83.39 Other disorders of phosphorus metabolism; I10 Essential (primary) hypertension; I48.2 Chronic atrial fibrillation; D64.9 Anemia, unspecified; E78.5 Hyperlipidemia, unspecified; M54.5 Low back pain; G89.29 Other chronic pain; E03.9 Hypothyroidism, unspecified; Z96.642 Presence of left artificial hip joint; Z79.82 Long term (current) use of aspirin
CPT/HCPCS: 83880; 84439; 92610-GN; 94150; 97110-GP; 97116-GP; 97530-GP; J0696; J1885; J3490; J7030; J7620; Q0092

== ENCOUNTER 2017-05-19 11:34 | Observation (INO) | payer OTHER ==
[~2017-05-19] VITALS: Ht 170.2 cm; Wt 93.1 kg
[~2017-05-19 11:34] MED LIST changes: +BD LACTINEX1.4 MG PO; +ROC1I IM
[2017-05-19 13:32] LABS: BASOPHIL % 1.1 % (0-2); PLATELET COUNT 265 x10^3mcL (130-400)
[2017-05-19 13:33] LABS: RED CELL DISTRIBUTION WIDTH 15.1 % (11.5-14.5)
[2017-05-19 13:52] LABS: T3 TOTAL 0.69 ng/mL
[2017-05-19 13:54] LABS: FREE T4 1.12 ng/dL (0.76-1.46); FREE THYROXINE INDEX 2.8 ug/dL (1.4-4.5); T4(THYROXINE) 8.1 ug/dL (4.7-13.3)
[2017-05-19 14:01] LABS: CALCIUM 8.7 mg/dL (8.5-10.1); CARBON DIOXIDE 21.1 mmol/L (21-32); CHLORIDE SERUM 107 mmol/L (98-107); GLUCOSE SERUM 94 mg/dL (74-106); SODIUM SERUM 141 mmol/L (136-145)
[2017-05-19 14:05] LABS: ALBUMIN 3.7 g/dL (3.4-5.0); ALKALINE PHOSPHATASE 56 U/L (46-116); ALT/SGPT 13 U/L (16-63); AST/SGOT 8 U/L (15-37); BILIRUBIN TOTAL 0.6 mg/dL (0.20-1.00); LIPASE 113 IU/L (73-393); TOTAL PROTEIN, SERUM 7.3 g/dL (6.4-8.2); TRIGLYCERIDES 124 mg/dL (<150)
[2017-05-19 14:09] LABS: CHOLESTEROL 89 mg/dL (<200); HDL CHOLESTEROL 30 mg/dL (40-60)
[2017-05-19 14:52] LABS: microscopic required? NO
[2017-05-19 15:30] LABS: urine erythrocyte NEGATIVE (NEGATIVE)
[2017-05-19] MEDS ORDERED: PROSCAR5 MG (16:14)
[2017-05-19] MEDS ORDERED: PROTONIX40 MG/Pac1 PO (16:15)
[2017-05-19 17:05] LABS: AMPHETAMINE QUAL UR NONE DETECTED (NEG <=1000)
[2017-05-19 17:09] LABS: MAGNESIUM 2.6 mg/dL (1.8-2.4)
[2017-05-19 17:26] VITALS: BP 169/65
[2017-05-19 17:41] VITALS: Ht 170.2 cm; Wt 93.1 kg
[2017-05-19 21:55] VITALS: BP 158/63
[2017-05-20 06:01] VITALS: BP 143/83
[2017-05-20 07:30] LABS: BASOPHIL % 0.6 % (0-2); PLATELET COUNT 225 x10^3mcL (130-400)
[2017-05-20 07:35] LABS: RED CELL DISTRIBUTION WIDTH 14.7 % (11.5-14.5)
[2017-05-20 07:47] LABS: CALCIUM 8.4 mg/dL (8.5-10.1); CARBON DIOXIDE 22.3 mmol/L (21-32); CHLORIDE SERUM 108 mmol/L (98-107); CREATININE SERUM 0.9 mg/dL (0.7-1.3); GLUCOSE SERUM 96 mg/dL (74-106); MAGNESIUM 2.1 mg/dL (1.8-2.4); POTASSIUM SERUM 4.3 mmol/L (3.5-5.1); SODIUM SERUM 142 mmol/L (136-145)
[2017-05-20 09:21] VITALS: BP 163/65
[2017-05-20 13:10] VITALS: BP 113/56
[2017-05-20 16:38] VITALS: BP 151/59
[2017-05-20 18:44] VITALS: BP 151/59
[2017-05-20 21:43] VITALS: BP 140/54
== END 2017-05-21 02:03 | DRG 640 ==
LOC: ED 11:34 → DU 16:08
PROVIDERS: Family Medicine; Specialist
DX: E86.0 Dehydration (principal); N17.0 Acute kidney failure with tubular necrosis; K52.9 Noninfective gastroenteritis and colitis, unspecified; K59.00 Constipation, unspecified; K57.90 Diverticulosis of intestine, part unspecified, without perforation or abscess without bleeding; E83.41 Hypermagnesemia; R55 Syncope and collapse; I48.91 Unspecified atrial fibrillation; I10 Essential (primary) hypertension; F41.8 Other specified anxiety disorders; J44.9 Chronic obstructive pulmonary disease, unspecified; N40.0 Benign prostatic hyperplasia without lower urinary tract symptoms; E03.9 Hypothyroidism, unspecified; E78.5 Hyperlipidemia, unspecified; D64.9 Anemia, unspecified; Z68.32 Body mass index [BMI] 32.0-32.9, adult; Z87.891 Personal history of nicotine dependence; Z96.642 Presence of left artificial hip joint; Z96.652 Presence of left artificial knee joint; Z91.81 History of falling; Z79.82 Long term (current) use of aspirin
CPT/HCPCS: 83880; 84439; 97110-GP; G0378; J1885; J3490; J7030; J7040; J7050; Q0163

== ENCOUNTER 2018-03-20 23:34 | Emergency (ER) | payer OTHER, MEDICAID ==
[~2018-03-20] VITALS: Ht 170.2 cm; Wt 95.3 kg
[~2018-03-20 23:34] MED LIST changes: +PROSCAR5 MG; +PROTONIX40 MG/Pac1 PO
[2018-03-20 23:43] VITALS: Ht 170.2 cm; Wt 95.3 kg
[2018-03-21 00:19] LABS: BASOPHIL % 0.2 % (0-2); PLATELET COUNT 233 x10^3mcL (130-400)
[2018-03-21 00:20] LABS: RED CELL DISTRIBUTION WIDTH 16.8 % (11.5-14.5)
[2018-03-21 00:28] LABS: CARBON DIOXIDE 28.7 mmol/L (21-32); CHLORIDE SERUM 105 mmol/L (98-107); GLUCOSE SERUM 140 mg/dL (74-106); POTASSIUM SERUM 3.8 mmol/L (3.5-5.1); SODIUM SERUM 139 mmol/L (136-145)
[2018-03-21 00:35] LABS: ALKALINE PHOSPHATASE 84 U/L (46-116); ALT/SGPT 16 U/L (16-63); AMYLASE 49 U/L (25-115); AST/SGOT 13 U/L (15-37); BILIRUBIN TOTAL 0.3 mg/dL (0.20-1.00); LIPASE 110 IU/L (73-393)
[2018-03-21 00:38] LABS: ALBUMIN 3.2 g/dL (3.4-5.0)
[2018-03-21 04:26] LABS: microscopic required? NO
[2018-03-21 04:31] LABS: urine erythrocyte NEGATIVE (NEGATIVE)
[2018-03-21 07:30] VITALS: BP 142/69
== END 2018-03-21 07:30 | disposition home or self-care (01) ==
LOC: ED 23:34
PROVIDERS: Emergency Medicine
DX: K59.00 Constipation, unspecified (principal); I10 Essential (primary) hypertension; J44.9 Chronic obstructive pulmonary disease, unspecified; E78.00 Pure hypercholesterolemia, unspecified; K21.9 Gastro-esophageal reflux disease without esophagitis; Z88.2 Allergy status to sulfonamides; Z91.040 Latex allergy status
CPT/HCPCS: J2405; J3010; J7030

== ENCOUNTER 2018-04-02 09:22 | Emergency (ER) | payer OTHER, MEDICAID ==
[~2018-04-02] VITALS: Ht 170.2 cm; Wt 97.5 kg
[2018-04-02 09:33] VITALS: Ht 170.2 cm; Wt 97.5 kg
[2018-04-02 10:34] LABS: BASOPHIL % 0.3 % (0-2); PLATELET COUNT 295 x10^3mcL (130-400)
[2018-04-02 10:35] LABS: RED CELL DISTRIBUTION WIDTH 16.7 % (11.5-14.5)
[2018-04-02 10:39] LABS: CALCIUM 8.1 mg/dL (8.5-10.1); CARBON DIOXIDE 30.6 mmol/L (21-32); CHLORIDE SERUM 105 mmol/L (98-107); CREATININE SERUM 1.1 mg/dL (0.7-1.3); GLUCOSE SERUM 164 mg/dL (74-106); POTASSIUM SERUM 3.8 mmol/L (3.5-5.1); SODIUM SERUM 141 mmol/L (136-145)
[2018-04-02 10:43] LABS: ALKALINE PHOSPHATASE 87 U/L (46-116); ALT/SGPT 16 U/L (16-63); AST/SGOT 11 U/L (15-37); BILIRUBIN TOTAL 0.37 mg/dL (0.20-1.00); TOTAL PROTEIN, SERUM 7.1 g/dL (6.4-8.2)
[2018-04-02 10:44] LABS: ALBUMIN 3.3 g/dL (3.4-5.0); CHOLESTEROL 94 mg/dL (<200); HDL CHOLESTEROL 26 mg/dL (40-60)
[2018-04-02 13:40] VITALS: BP 139/84
== END 2018-04-02 13:40 | disposition home or self-care (01) ==
LOC: ED 09:22
PROVIDERS: Emergency Medicine
DX: R07.89 Other chest pain (principal); R05 Cough; R60.0 Localized edema; J44.9 Chronic obstructive pulmonary disease, unspecified; I10 Essential (primary) hypertension; E11.9 Type 2 diabetes mellitus without complications; E78.00 Pure hypercholesterolemia, unspecified; K21.9 Gastro-esophageal reflux disease without esophagitis; Z98.890 Other specified postprocedural states; Z88.2 Allergy status to sulfonamides; Z91.040 Latex allergy status
CPT/HCPCS: 83880; J2930; J7613; Q0092

== ENCOUNTER 2018-04-13 06:25 | Emergency (ER) | payer OTHER, MEDICAID ==
[~2018-04-13] VITALS: Ht 170.2 cm; Wt 104.3 kg
[2018-04-13 06:32] VITALS: Ht 170.2 cm; Wt 104.3 kg
[2018-04-13 06:59] LABS: CALCIUM 7.6 mg/dL (8.5-10.1); CARBON DIOXIDE 26.3 mmol/L (21-32); CHLORIDE SERUM 103 mmol/L (98-107); GLUCOSE SERUM 159 mg/dL (74-106); POTASSIUM SERUM 4.6 mmol/L (3.5-5.1); SODIUM SERUM 135 mmol/L (136-145)
[2018-04-13 07:04] LABS: microscopic required? NO
[2018-04-13 07:05] LABS: ALKALINE PHOSPHATASE 101 U/L (46-116); ALT/SGPT 18 U/L (16-63); AST/SGOT 21 U/L (15-37); BILIRUBIN TOTAL 0.18 mg/dL (0.20-1.00); LIPASE 101 IU/L (73-393); TOTAL PROTEIN, SERUM 6.8 g/dL (6.4-8.2); TRIGLYCERIDES 167 mg/dL (<150)
[2018-04-13 07:06] LABS: ALBUMIN 3.2 g/dL (3.4-5.0); CHOLESTEROL 69 mg/dL (<200); CHOLESTEROL/HDL RATIO 2.6; HDL CHOLESTEROL 27 mg/dL (40-60)
[2018-04-13 07:11] LABS: BASOPHIL % 0.3 % (0-2); PLATELET COUNT 237 x10^3mcL (130-400); T3 TOTAL 0.88 ng/mL
[2018-04-13 07:18] LABS: urine erythrocyte NEGATIVE (NEGATIVE)
[2018-04-13 07:19] LABS: FREE T4 0.9 ng/dL (0.76-1.46); FREE THYROXINE INDEX 2.3 ug/dL (1.4-4.5); RED CELL DISTRIBUTION WIDTH 16.8 % (11.5-14.5); T4(THYROXINE) 6.6 ug/dL (4.7-13.3)
[2018-04-13] MEDS ORDERED: RANITIDINE HCL150 M1 (07:24)
[2018-04-13] MEDS ORDERED: ATORVASTATIN CA40 M1 (07:24)
[2018-04-13 09:59] VITALS: BP 161/64
== END 2018-04-13 09:59 | disposition left against medical advice (07) ==
LOC: ED 06:25
PROVIDERS: Specialist
DX: I50.9 Heart failure, unspecified (principal); J44.9 Chronic obstructive pulmonary disease, unspecified; I10 Essential (primary) hypertension; E11.9 Type 2 diabetes mellitus without complications; E78.00 Pure hypercholesterolemia, unspecified; K21.9 Gastro-esophageal reflux disease without esophagitis; F41.9 Anxiety disorder, unspecified; F32.9 Major depressive disorder, single episode, unspecified; Z88.2 Allergy status to sulfonamides; Z91.040 Latex allergy status; Z98.890 Other specified postprocedural states
CPT/HCPCS: 36415; 83880; 84439; J7030; J7613; J7644; Q0092

== ENCOUNTER 2018-04-15 21:22 | Emergency (ER) | payer OTHER, MEDICAID ==
[~2018-04-15] VITALS: Ht 172.7 cm; Wt 113.4 kg
[~2018-04-15 21:22] MED LIST changes: +ATORVASTATIN CA40 M1; +RANITIDINE HCL150 M1
[2018-04-15 23:01] LABS: BASOPHIL % 0.3 % (0-2); PLATELET COUNT 246 x10^3mcL (130-400)
[2018-04-15 23:04] LABS: RED CELL DISTRIBUTION WIDTH 17.6 % (11.5-14.5)
[2018-04-15 23:17] LABS: CALCIUM 8.3 mg/dL (8.5-10.1); CARBON DIOXIDE 23.4 mmol/L (21-32); CHLORIDE SERUM 101 mmol/L (98-107); CREATININE SERUM 1.2 mg/dL (0.7-1.3); GLUCOSE SERUM 155 mg/dL (74-106); POTASSIUM SERUM 4.6 mmol/L (3.5-5.1); SODIUM SERUM 135 mmol/L (136-145)
[2018-04-15 23:22] LABS: ALBUMIN 3.2 g/dL (3.4-5.0); ALKALINE PHOSPHATASE 92 U/L (46-116); ALT/SGPT 23 U/L (16-63); AST/SGOT 17 U/L (15-37); BILIRUBIN TOTAL 0.2 mg/dL (0.20-1.00); LIPASE 111 IU/L (73-393); TOTAL PROTEIN, SERUM 7.2 g/dL (6.4-8.2)
[2018-04-16 00:01] LABS: microscopic required? NO
[2018-04-16 00:22] LABS: urine erythrocyte NEGATIVE (NEGATIVE)
[2018-04-16 01:37] VITALS: BP 133/74
== END 2018-04-16 01:30 | disposition home or self-care (01) ==
LOC: ED 21:22
PROVIDERS: Emergency Medicine
DX: R10.31 Right lower quadrant pain (principal); J44.9 Chronic obstructive pulmonary disease, unspecified; J45.909 Unspecified asthma, uncomplicated; I10 Essential (primary) hypertension; E11.9 Type 2 diabetes mellitus without complications; E78.00 Pure hypercholesterolemia, unspecified; K21.9 Gastro-esophageal reflux disease without esophagitis; F41.9 Anxiety disorder, unspecified; M19.90 Unspecified osteoarthritis, unspecified site; F32.9 Major depressive disorder, single episode, unspecified; Z98.890 Other specified postprocedural states; Z88.2 Allergy status to sulfonamides; Z91.040 Latex allergy status
CPT/HCPCS: 83880; J2270; Q0092

== ENCOUNTER 2018-07-11 03:52 | Emergency (ER) | payer OTHER, MEDICAID ==
[~2018-07-11] VITALS: Ht 177.8 cm; Wt 108.9 kg
[2018-07-11 04:00] VITALS: Ht 177.8 cm; Wt 108.9 kg
[2018-07-11 04:38] LABS: BASOPHIL % 0.2 % (0-2); PLATELET COUNT 267 x10^3mcL (130-400)
[2018-07-11 04:43] LABS: RED CELL DISTRIBUTION WIDTH 18.8 % (11.5-14.5)
[2018-07-11 04:45] LABS: CALCIUM 8.8 mg/dL (8.5-10.1); CARBON DIOXIDE 26.8 mmol/L (21-32); CHLORIDE SERUM 106 mmol/L (98-107); GLUCOSE SERUM 126 mg/dL (74-106); POTASSIUM SERUM 4.6 mmol/L (3.5-5.1); SODIUM SERUM 140 mmol/L (136-145)
[2018-07-11 04:50] LABS: ALBUMIN 3.6 g/dL (3.4-5.0); ALKALINE PHOSPHATASE 91 U/L (46-116); ALT/SGPT 13 U/L (16-63); AST/SGOT 12 U/L (15-37); BILIRUBIN TOTAL 0.42 mg/dL (0.20-1.00); TOTAL PROTEIN, SERUM 7.3 g/dL (6.4-8.2)
[2018-07-11 07:20] LABS: microscopic required? NO
[2018-07-11 08:10] VITALS: BP 160/70
[2018-07-11 08:13] LABS: UA SPECIFIC GRAVITY 1.025 (1.005-1.035); urine erythrocyte NEGATIVE (NEGATIVE)
== END 2018-07-11 08:10 | disposition short-term general hospital (02) ==
LOC: ED 03:52
PROVIDERS: Emergency Medicine
DX: E86.0 Dehydration (principal); R53.1 Weakness; R55 Syncope and collapse; J45.909 Unspecified asthma, uncomplicated; J44.9 Chronic obstructive pulmonary disease, unspecified; I10 Essential (primary) hypertension; E11.9 Type 2 diabetes mellitus without complications; E78.00 Pure hypercholesterolemia, unspecified; K21.9 Gastro-esophageal reflux disease without esophagitis; F41.9 Anxiety disorder, unspecified; F32.9 Major depressive disorder, single episode, unspecified; M19.90 Unspecified osteoarthritis, unspecified site; I48.91 Unspecified atrial fibrillation; Z88.2 Allergy status to sulfonamides; Z91.040 Latex allergy status; Z98.890 Other specified postprocedural states
CPT/HCPCS: J7030

== ENCOUNTER 2018-07-18 22:50 | Emergency (ER) | payer OTHER, MEDICAID ==
[~2018-07-18] VITALS: Ht 170.2 cm; Wt 104.3 kg
[2018-07-18 23:12] VITALS: Ht 170.2 cm; Wt 104.3 kg
[2018-07-19 00:48] LABS: BASOPHIL % 0.5 % (0-2); PLATELET COUNT 254 x10^3mcL (130-400)
[2018-07-19 00:56] LABS: RED CELL DISTRIBUTION WIDTH 18.8 % (11.5-14.5)
[2018-07-19 01:12] LABS: CALCIUM 8.2 mg/dL (8.5-10.1); CARBON DIOXIDE 27.3 mmol/L (21-32); CHLORIDE SERUM 103 mmol/L (98-107); CREATININE SERUM 1.1 mg/dL (0.7-1.3); GLUCOSE SERUM 107 mg/dL (74-106); POTASSIUM SERUM 4.2 mmol/L (3.5-5.1); SODIUM SERUM 140 mmol/L (136-145)
[2018-07-19 01:16] LABS: ALBUMIN 3.4 g/dL (3.4-5.0); ALKALINE PHOSPHATASE 92 U/L (46-116); ALT/SGPT 21 U/L (16-63); AST/SGOT 14 U/L (15-37); BILIRUBIN TOTAL 0.3 mg/dL (0.20-1.00); LIPASE 83 IU/L (73-393); TOTAL PROTEIN, SERUM 6.9 g/dL (6.4-8.2)
[2018-07-19 01:38] LABS: microscopic required? NO
[2018-07-19 01:42] LABS: UA SPECIFIC GRAVITY 1.025 (1.005-1.035); urine erythrocyte NEGATIVE (NEGATIVE)
[2018-07-19 04:47] VITALS: BP 146/76
== END 2018-07-19 04:47 | disposition home or self-care (01) ==
LOC: ED 22:50
PROVIDERS: Emergency Medicine
DX: K59.00 Constipation, unspecified (principal); J44.9 Chronic obstructive pulmonary disease, unspecified; I10 Essential (primary) hypertension; E11.9 Type 2 diabetes mellitus without complications; E78.00 Pure hypercholesterolemia, unspecified; K21.9 Gastro-esophageal reflux disease without esophagitis; F32.9 Major depressive disorder, single episode, unspecified; Z98.890 Other specified postprocedural states; Z88.2 Allergy status to sulfonamides; Z91.040 Latex allergy status
CPT/HCPCS: 36415; 87804; J7620; Q0092

== ENCOUNTER 2018-08-14 05:10 | Inpatient (IN) | payer OTHER ==
[~2018-08-14] VITALS: Ht 170.2 cm; Wt 108.6 kg
[2018-08-14 06:29] LABS: BASOPHIL % 0.3 % (0-2); PLATELET COUNT 235 x10^3mcL (130-400)
[2018-08-14 06:36] LABS: CARBON DIOXIDE 28.9 mmol/L (21-32); CHLORIDE SERUM 104 mmol/L (98-107); CREATININE SERUM 1.1 mg/dL (0.7-1.3); GLUCOSE SERUM 127 mg/dL (74-106); POTASSIUM SERUM 5.1 mmol/L (3.5-5.1); SODIUM SERUM 139 mmol/L (136-145)
[2018-08-14 06:41] LABS: ALBUMIN 3.5 g/dL (3.4-5.0); ALKALINE PHOSPHATASE 101 U/L (46-116); ALT/SGPT 14 U/L (16-63); AST/SGOT 13 U/L (15-37); BILIRUBIN TOTAL 0.4 mg/dL (0.20-1.00)
[2018-08-14 06:44] LABS: RED CELL DISTRIBUTION WIDTH 17.8 % (11.5-14.5)
[2018-08-14 07:21] LABS: microscopic required? YES; urine erythrocyte TRACE (NEGATIVE)
[2018-08-14 07:21] LABS: CK-MB 1.3 ng/mL (0-3.6)
[2018-08-14 13:45] VITALS: BP 153/56
[2018-08-14 15:24] LABS: MAGNESIUM 2.1 mg/dL (1.8-2.4)
[2018-08-14 15:27] LABS: CHOLESTEROL/HDL RATIO 3.4
[2018-08-14 17:25] VITALS: BP 153/56
[2018-08-14 20:54] VITALS: BP 154/70
[2018-08-15 05:39] VITALS: BP 139/69
[2018-08-15 09:26] VITALS: BP 140/44
[2018-08-15 12:29] VITALS: BP 112/42
[2018-08-15 18:36] VITALS: BP 109/44
[2018-08-15 19:54] VITALS: BP 108/45
[2018-08-16 06:35] VITALS: BP 134/48
[2018-08-16 13:56] VITALS: Ht 170.2 cm; Wt 108.6 kg
[2018-08-16 17:22] VITALS: BP 146/66
[2018-08-16 21:11] VITALS: BP 117/59
[2018-08-17 05:44] VITALS: BP 96/48
[2018-08-17 10:07] VITALS: BP 96/48
[2018-08-17 10:41] VITALS: BP 118/46
[2018-08-17 13:07] VITALS: BP 118/46
== END 2018-08-17 14:53 | DRG 193 ==
LOC: ED 05:10 → DU 12:19
PROVIDERS: Emergency Medicine; ADMIT Internal Medicine
DX: R09.1 Pleurisy (principal); J18.9 Pneumonia, unspecified organism; K21.9 Gastro-esophageal reflux disease without esophagitis; J44.9 Chronic obstructive pulmonary disease, unspecified; I11.9 Hypertensive heart disease without heart failure; I25.10 Atherosclerotic heart disease of native coronary artery without angina pectoris; I48.91 Unspecified atrial fibrillation; E11.9 Type 2 diabetes mellitus without complications; E78.00 Pure hypercholesterolemia, unspecified
CPT/HCPCS: 82962; A9500; J1956; J2785; J3490; J7030; J7040; J7620; Q0092